=== PATIENT | male | born 1965 | race Caucasian/White ===

== ENCOUNTER 2017-12-28 21:47 | Emergency (ER) | payer OTHER ==
[~2017-12-28] VITALS: Ht 175.2 cm; Wt 56.7 kg
[~2017-12-28 21:47] MED LIST: CEPHALEXIN500 M1 PO; HYDROCODONE BIT1 T11 PO; REGLAN10 M1 PO; SILVADENE1% TP
== END 2017-12-28 22:52 | disposition home or self-care (01) ==
LOC: ED 21:47
DX: T18.128A Food in esophagus causing other injury, initial encounter (principal); R13.10 Dysphagia, unspecified; Y92.9 Unspecified place or not applicable

== ENCOUNTER 2019-11-03 09:23 | Emergency (ER) | payer OTHER ==
[~2019-11-03] VITALS: Ht 175.2 cm; Wt 65.8 kg
[2019-11-03 09:49] LABS: BASO # 0.1 10*3/uL (0.0-0.1); BASO % 1.4 % (0.0-1.0); EOS # 0.5 10*3/uL (0.0-0.4); EOS % 5.9 % (1.0-4.0); LYMPH # 3.4 10*3/uL (1.3-4.4); MEAN CELL VOLUME 89.3 fl (80.0-94.0); MEAN CORPUSCULAR HGB CONC 34.7 g/dl (33.0-37.0); MEAN PLATELET VOLUME 9.4 fl (9.6-12.3); MONO # 0.8 10*3/uL (0.1-1.0); MONO % 9.8 % (3.0-9.0); NEUT # 3.6 10*3/uL (2.3-7.9); NEUT % 42.7 % (47.0-73.0); PLATELET COUNT AUTOMATED 308 10*3/uL (130-400); RED BLOOD COUNT 5.04 10*6/uL (4.50-5.90); RED CELL DISTRI WIDTH 12.9 % (0-14.5); WHITE BLOOD COUNT 8.5 10*3/uL (4.8-10.8)
[2019-11-03 10:00] LABS: BILIRUBIN NEGATIVE (NEGATIVE); BLOOD 3+ (NEGATIVE); CLARITY CLOUDY (CLEAR); COLOR RED (YELLOW); GLUCOSE NEGATIVE (NEGATIVE); KETONE NEGATIVE (NEGATIVE); LEUKO ESTERASE TRACE (NEGATIVE); NITRITE NEGATIVE (NEGATIVE); UROBILINOGEN 0.2 E.U./dl (0.2-1.0)
[2019-11-03 10:04] LABS: ALKALINE PHOSPHATASE 76 U/L (45-117); BUN 12 mg/dl (7-24); CHLORIDE 109 mmol/L (98-107); CREATININE 1.21 mg/dL (0.70-1.30); LIPASE 97 U/L (73-393); SGOT/AST 28 IU/L (3-35); SGPT/ALT 31 U/L (12-78); SODIUM 144 mmol/L (136-145); TOTAL PROTEIN 7.3 gm/dL (6.4-8.2)
[2019-11-03 10:05] LABS: POTASSIUM 3.5 mmol/L (3.5-5.1)
[2019-11-03 10:16] LABS: RBC TNTC rbc/hpf (0-2)
[2019-11-03 10:17] LABS: BACTERIA 2+; MUCOUS 2+
== END 2019-11-03 10:49 | disposition home or self-care (01) ==
LOC: ED 09:23
PROVIDERS: Emergency Medicine
DX: N20.0 Calculus of kidney (principal)

== ENCOUNTER → 2020-05-11 | Outpatient (CLI) | payer OTHER | END | disposition home or self-care (01) | LOC: COVID19 10:22 | PROVIDERS: ATTEND Family Medicine | DX: U07.1 COVID-19 (principal) ==

== ENCOUNTER → 2020-10-15 | Outpatient (CLI) | payer OTHER ==
[2020-10-15 07:52] LABS: HEMATOCRIT 43.6 % (42.0-52.0); MEAN CELL VOLUME 90.3 fl (80.0-94.0); MEAN CORPUSCULAR HGB 30.6 pg (27.0-31.0); MEAN CORPUSCULAR HGB CONC 33.9 g/dl (33.0-37.0); MEAN PLATELET VOLUME 8.8 fl (9.6-12.3); RED BLOOD COUNT 4.83 10*6/uL (4.50-5.90); RED CELL DISTRI WIDTH 13.2 % (0-14.5); WHITE BLOOD COUNT 7.9 10*3/uL (4.8-10.8)
[2020-10-15 09:25] LABS: ALBUMIN 3.6 gm/dl (3.1-4.5); BUN 16 mg/dl (7-24); CHLORIDE 108 mmol/L (98-107); CREATININE 0.99 mg/dL (0.70-1.30); POTASSIUM 3.2 mmol/L (3.5-5.1); SGOT/AST 11 IU/L (3-35); SGPT/ALT 31 U/L (12-78); SODIUM 142 mmol/L (136-145); TOTAL PROTEIN 6.6 gm/dL (6.4-8.2)
[2020-10-15 09:33] LABS: ALKALINE PHOSPHATASE 79 U/L (45-117)
== END | disposition home or self-care (01) ==
LOC: LAB 07:33
PROVIDERS: ATTEND Family Medicine
DX: R53.83 Other fatigue (principal); R21 Rash and other nonspecific skin eruption; L85.3 Xerosis cutis

== ENCOUNTER 2021-12-27 17:52 | Emergency (ER) | payer OTHER ==
[~2021-12-27] VITALS: Ht 177.8 cm; Wt 63.5 kg
[2021-12-27 18:28] LABS: HEMATOCRIT 46.2 % (42.0-52.0); MEAN CELL VOLUME 88.2 fl (80.0-94.0); MEAN CORPUSCULAR HGB 30.2 pg (27.0-31.0); MEAN CORPUSCULAR HGB CONC 34.2 g/dl (33.0-37.0); MEAN PLATELET VOLUME 9.1 fl (9.6-12.3); PLATELET COUNT AUTOMATED 262 10*3/uL (130-400); RED BLOOD COUNT 5.24 10*6/uL (4.50-5.90); RED CELL DISTRI WIDTH 12.7 % (0-14.5); WHITE BLOOD COUNT 7.9 10*3/uL (4.8-10.8)
[2021-12-27 18:29] LABS: MANUAL DIFF REFLEX YES
[2021-12-27 18:35] LABS: BILIRUBIN 1+ (Negative); BLOOD Negative (Negative); CLARITY Clear (Clear); COLOR Dark Yellow (Yellow); GLUCOSE Negative (Negative); KETONE 1+ (Negative); LEUKO ESTERASE Negative (Negative); NITRITE Negative (Negative); PH 5.5 (4.5-8.0); SPECIFIC GRAVITY >= 1.030 (1.001-1.030)
[2021-12-27 18:43] LABS: ALKALINE PHOSPHATASE 79 U/L (45-117); BUN 21 mg/dl (7-24); CHLORIDE 106 mmol/L (98-107); CREATININE 1.14 mg/dL (0.70-1.30); POTASSIUM 3.4 mmol/L (3.5-5.1); SGOT/AST 23 IU/L (3-35); SGPT/ALT 18 U/L (12-78); SODIUM 139 mmol/L (136-145); TOTAL PROTEIN 7.5 gm/dL (6.4-8.2)
[2021-12-27 18:53] LABS: ATYPICAL LYMPHS 10 % (0-0); PLATELET SUFFICIENCY NORMAL (NORMAL); TOTAL CELLS COUNTED 100 #CELLS
[2021-12-27 18:54] LABS: BURR CELLS FEW
[2021-12-27 18:55] LABS: POLYCHROMASIA SLIGHT
[2021-12-27 19:03] LABS: BACTERIA 1+; MUCOUS 1+; RBC 0-2 rbc/hpf (0-2); WBC 0-2 wbc/hpf (0-5)
== END 2021-12-27 20:50 | disposition home or self-care (01) ==
LOC: ED 17:52
PROVIDERS: Emergency Medicine
DX: B34.9 Viral infection, unspecified (principal); Z20.822 Contact with and (suspected) exposure to COVID-19; E87.6 Hypokalemia

== ENCOUNTER 2025-03-12 09:16 | Emergency (ER) | payer OTHER ==
[~2025-03-12] VITALS: Ht 177.8 cm; Wt 65.8 kg
[2025-03-12] MEDS ORDERED: PREDNISONE20 M1 PO (09:52)
[2025-03-12] MEDS ORDERED: SEPTDS PO (09:52)
[2025-03-12] MEDS ORDERED: Dexamethasone Sodium Phospha 20 MG/5 ML VIAL IM ONE (09:55)
== END 2025-03-12 10:10 | disposition home or self-care (01) ==
LOC: ED 09:16
DX: L20.9 Atopic dermatitis, unspecified (principal); L03.113 Cellulitis of right upper limb

== ENCOUNTER 2025-03-15 12:58 | Emergency (ER) | payer OTHER ==
[~2025-03-15] VITALS: Ht 177.8 cm; Wt 65.3 kg
[~2025-03-15 12:58] MED LIST changes: +PREDNISONE20 M1 PO; +SEPTDS PO
[2025-03-15] MEDS ORDERED: CEPHALEXIN500 M1 PO (13:13)
[2025-03-15] MEDS ORDERED: Tdap Vaccine 0.5 ML SYR (Adult Vaccine) IM ONE (13:20)
== END 2025-03-15 14:30 | disposition home or self-care (01) ==
LOC: ED 12:58
DX: S50.12XA Contusion of left forearm, initial encounter (principal); S60.012A Contusion of left thumb without damage to nail, initial encounter; W22.8XXA Striking against or struck by other objects, initial encounter; Y93.89 Activity, other specified; Y92.89 Other specified places as the place of occurrence of the external cause; Y99.8 Other external cause status